=== PATIENT | female | born 1975 | race Caucasian/White ===

== ENCOUNTER 2016-10-30 13:25 | Day surgery (SDC) | payer OTHER ==
[~2016-10-30 13:25] MED LIST: CIPRO500 MG PO; COREG6.25 MG PO; LINZESS290 MCG PO; SYNTHROID75 MCG PO; XANAX0.5 MG PO; ZYRTEC10 MG PO
== END 2016-10-30 15:00 | disposition short-term general hospital (02) ==
LOC: SURGOP 13:25
PROC: 3E0T33Z Introduction of Anti-inflammatory into Peripheral Nerves and Plexi, Percutaneous Approach (ICD-10-PCS; principal; 2016-10-30)
PROC: 3E0T3BZ Introduction of Anesthetic Agent into Peripheral Nerves and Plexi, Percutaneous Approach (ICD-10-PCS; 2016-10-30)
PROC: BR14YZZ Fluoroscopy of Cervical Facet Joint(s) using Other Contrast (ICD-10-PCS; 2016-10-30)
DX: M47.812 Spondylosis without myelopathy or radiculopathy, cervical region (principal); M50.322 Other cervical disc degeneration at C5-C6 level; M51.26 Other intervertebral disc displacement, lumbar region; F41.9 Anxiety disorder, unspecified; F17.210 Nicotine dependence, cigarettes, uncomplicated; Z88.8 Allergy status to other drugs, medicaments and biological substances; Z91.040 Latex allergy status; Z79.899 Other long term (current) drug therapy; Z90.89 Acquired absence of other organs; Z98.890 Other specified postprocedural states

== ENCOUNTER → 2016-11-09 | Outpatient (CLI) | payer OTHER | END | disposition short-term general hospital (02) | LOC: CLNEUR 10:14 | DX: Z47.89 Encounter for other orthopedic aftercare (principal) ==

== ENCOUNTER → 2016-11-13 | Outpatient (CLI) | payer OTHER | END | disposition short-term general hospital (02) | LOC: CLPAIN 08:11 | DX: M47.22 Other spondylosis with radiculopathy, cervical region (principal) ==

== ENCOUNTER → 2016-12-18 | Outpatient (CLI) | payer OTHER | END | disposition short-term general hospital (02) | LOC: CLPAIN 12:04 | DX: M47.22 Other spondylosis with radiculopathy, cervical region (principal) ==

== ENCOUNTER 2017-01-29 12:41 | Day surgery (SDC) | payer OTHER | END 2017-01-29 14:55 | disposition short-term general hospital (02) | LOC: SURGOP 12:41 | DX: M54.12 Radiculopathy, cervical region (principal) | CPT/HCPCS: J1040; J2250; J3010; Q9967 ==